=== PATIENT | female | born 1950 | race Caucasian/White ===

== ENCOUNTER 2016-07-09 19:51 | Outpatient (CLI) | payer OTHER | END 2016-07-09 19:52 | disposition critical access hospital (66) | DX: M25.571 Pain in right ankle and joints of right foot (principal); W01.0XXA Fall on same level from slipping, tripping and stumbling without subsequent striking against object, initial encounter; Y93.01 Activity, walking, marching and hiking | CPT/HCPCS: A0425; A0429 ==

== ENCOUNTER 2016-07-09 20:01 | Emergency (ER) | payer OTHER ==
[2016-07-09] MEDS ORDERED: HYDROcod/ACET 5/325 Prepack 6 PO ONE ×2 (21:06→21:10)
[2016-07-09] MEDS ORDERED: HYDROcod/ACETAM 5/325 MG TABLET PO STA (21:06)
[2016-07-09] MEDS ORDERED: KETOROLAC 60 MG/2 ML VIAL IM STA (21:06)
[2016-07-09] MEDS ORDERED: KETOROLAC 60 MG/2 ML VIAL ONE (21:10)
[2016-07-09] MEDS ORDERED: HYDROcod/ACETAM 5/325 MG TABLET ONE (21:10)
== END 2016-07-09 22:05 | disposition home or self-care (01) ==
DX: S82.851A Displaced trimalleolar fracture of right lower leg, initial encounter for closed fracture (principal); W01.0XXA Fall on same level from slipping, tripping and stumbling without subsequent striking against object, initial encounter; Y92.019 Unspecified place in single-family (private) house as the place of occurrence of the external cause; K21.9 Gastro-esophageal reflux disease without esophagitis
CPT/HCPCS: 29515; 73610; 96372; 99283; A9270

== ENCOUNTER 2016-07-17 12:24 | Observation (INO) | payer OTHER ==
[~2016-07-17 12:24] MED LIST: ceFAZolin 2 GM/50 ML 50 ML IV ONE
[2016-07-17] MEDS ORDERED: LACTATED RINGERS 1,000 ML IV ONE (12:48)
[2016-07-17] MEDS ORDERED: DEXAMETHASONE 4 MG/ML VIAL IVP ONE (13:45)
[2016-07-17] MEDS ORDERED: LIDOCAINE-MPF 2% 5 ML VIAL IM ONE (13:45)
[2016-07-17] MEDS ORDERED: EPINEPHrine 1 MG/ML AMP IVP ONE (13:45)
[2016-07-17] MEDS ORDERED: MIDAZOLAM 2 MG/2 ML VIAL IVP ONE (13:45)
[2016-07-17] MEDS ORDERED: PROPOFOL 200 MG/20 ML VIAL IVP ONE (13:45)
[2016-07-17] MEDS ORDERED: PHENYLEPHRINE 10 MG/ML VIAL IV ONE (13:45)
[2016-07-17] MEDS ORDERED: fentaNYL 100 MCG/2 ML VIAL IVP ONE (13:45)
[2016-07-17] MEDS ORDERED: ONDANSETRON 4 MG/2 ML VIAL IVP ONE (13:45)
[2016-07-17] MEDS ORDERED: ONDANSETRON 4 MG/2 ML VIAL IVP PRN (16:20)
[2016-07-17] MEDS ORDERED: ACETAMINOPHEN 325 MG TABLET PO PRN (16:20)
[2016-07-17] MEDS ORDERED: SODIUM CHLORIDE FLUSH 0.9% 10 ML SYRINGE IVP PRN (16:20)
[2016-07-17] MEDS ORDERED: PROCHLORPERAZINE 10 MG/2 ML VIAL IVP PRN (16:20)
[2016-07-17] MEDS ORDERED: ONDANSETRON ODT 4 MG TABLET TL PRN (16:20)
[2016-07-17] MEDS: HYDROcod/ACETAM 5/325 MG TABLET PO PRN ×2 (17:32→21:28)
[2016-07-17] MEDS: PANTOPRAZOLE 40 MG TABLET PO SCH (18:11)
[2016-07-18] MEDS: SODIUM CHLORIDE FLUSH 0.9% 10 ML SYRINGE IVP SCH ×2 (01:08→06:33)
[2016-07-18] MEDS: HYDROcod/ACETAM 5/325 MG TABLET PO PRN ×2 (02:41→07:00)
[2016-07-18] MEDS: PANTOPRAZOLE 40 MG TABLET PO SCH (06:31)
[2016-07-18] MEDS ORDERED: POLYETHYLENE GLYCOL 3350 17 GM PACKET PO SCH (09:00)
[2016-07-18] MEDS ORDERED: ENOXAPARIN 40 MG/0.4 ML SYRINGE SUBQ SCH (09:00)
== END 2016-07-18 09:54 | disposition home or self-care (01) ==
PROC: 0QSGXZZ Reposition Right Tibia, External Approach (ICD-10-PCS; 2016-07-17)
PROC: 0QSJXZZ Reposition Right Fibula, External Approach (ICD-10-PCS; principal; 2016-07-17 14:00)
DX: S82.851A Displaced trimalleolar fracture of right lower leg, initial encounter for closed fracture (principal); I46.9 Cardiac arrest, cause unspecified; K21.9 Gastro-esophageal reflux disease without esophagitis; Z73.3 Stress, not elsewhere classified; F41.9 Anxiety disorder, unspecified
CPT/HCPCS: 27818; 36415; 73610; 80053; 82550; 82553; 83735; 84100; 84484; 93005; 93306; 99217; 99218; A9270; J0690; J7120

== ENCOUNTER 2016-08-26 17:33 | Outpatient (CLI) | payer OTHER | END 2016-08-26 17:34 | disposition home or self-care (01) | DX: S82.841D Displaced bimalleolar fracture of right lower leg, subsequent encounter for closed fracture with routine healing (principal) ==

== ENCOUNTER 2017-01-08 15:12 | Outpatient (CLI) | payer OTHER ==
--- NOTE | 2017-01-09 15:36 | Mammography Report ---
DIGITAL SCREENING MAMMOGRAM: 01/08/2017 CLINICAL INDICATION: A 66-year-old nulliparous patient with history of benign cyst aspirations, for s creening. COMPARISON: 06/15/2012. TECHNIQUE: Routine CC and MLO projections were obtained of the breasts. Bilateral laterally exaggera sly craniocaudal views. FINDINGS: The breasts demonstrate heterogeneously dense fibroglandular parenchyma bilaterally. There is a shifting pattern of circumscribed nodules bilaterally, compatible with waxing and waning cysts. Coarse and punctate, typically benign calcifications are present. No suspicious masses, clustered mi crocalcifications, or regions of architectural distortion are identified. IMPRESSION: BENIGN FINDINGS. RECOMMENDATION: ROUTINE ANNUAL SCREENING UNLESS OTHERWISE CLINICALLY INDICATED. BIRADS CATEGORY 2-BENIGN FINDINGS. STANDARD QUALIFYING STATEMENTS 1. This examination was reviewed with the aid of Computer-Aided Detection (CAD). 2. A negative or benign imaging report should not delay biopsy if clinically suspicious findings are present. Consider surgical consultation if warranted. More than 5% of cancers are not identified by i maging. 3. Dense breasts may obscure an underlying neoplasm. JOB #: [id number] EXT JOB #:[id number]
== END 2017-01-08 15:13 | disposition home or self-care (01) ==
LOC: DI.N 15:12
PROVIDERS: ATTEND Family Medicine
DX: Z12.31 Encounter for screening mammogram for malignant neoplasm of breast (principal)
CPT/HCPCS: 77067

== ENCOUNTER → 2018-02-05 | Outpatient (CLI) | payer BC, OTHER ==
[2018-02-05 12:57] LABS: BASOPHILS % (AUTO) 0.6 %; EOSINOPHILS # (AUTO) 0.1 10^3/uL (0.0-0.7); EOSINOPHILS % (AUTO) 2.1 %; HGB - HEMOGLOBIN 13.5 g/dL (12.0-16.0); LYMPHOCYTES # (AUTO) 1.7 10^3/uL (1.5-3.5); LYMPHOCYTES % (AUTO) 33.6 %; MEAN CORPUSCULAR HEMOGLOBIN 29.9 pg (27.0-31.0); MEAN CORPUSCULAR VOLUME 87.8 fL (81.0-99.0); MEAN PLATELET VOLUME 7.1 fL (7.9-10.8); MONOCYTES # (AUTO) 0.5 10^3/uL (0.0-1.0); MONOCYTES % (AUTO) 10.1 %; NEUTROPHILS # (AUTO) 2.6 10^3/uL (1.5-6.6); NEUTROPHILS % (AUTO) 53.6 %; PLT - PLATELET COUNT 292 10^3/uL (130-450); RED BLOOD COUNT 4.53 10^6/uL (4.20-5.40); WHITE BLOOD COUNT 4.9 x10^3/uL (4.8-10.8)
[2018-02-05 13:14] LABS: ALBUMIN 3.8 g/dL (3.2-5.5); ALBUMIN/GLOBULIN RATIO 1.2 (1.0-2.2); ALKALINE PHOSPHATASE 57 IU/L (42-121); ALT ALANINE AMINOTRANSFERASE 18 IU/L (10-60); AST ASPARTATE AMINOTRANSFERASE 19 IU/L (10-42); BILIRUBIN,TOTAL 0.8 mg/dL (0.2-1.0); BUN - BLOOD UREA NITROGEN 15 mg/dL (6-20); CARBON DIOXIDE - CO2 25 mmol/L (21-32); CHLORIDE 101 mmol/L (101-111); CHOL/HDL RATIO 4.4 (<4.4); CHOLESTEROL 270 mg/dL; CREATININE 0.5 mg/dL (0.4-1.0); GFR - MDRD 124 (>89); GLUCOSE 109 mg/dL (70-100); HDL CHOLESTEROL 61 mg/dL; LDL CHOLESTEROL,CALCULATED 187 mg/dL; LDL/HDL RATIO 3.1 (<4.4); SODIUM 135 mmol/L (135-145); TOTAL PROTEIN 6.9 g/dL (6.7-8.2); VLDL CHOLESTEROL 22 mg/dL
== END ==
LOC: LAB.WCP 07:40
PROVIDERS: ATTEND Family Medicine
DX: Z00.00 Encounter for general adult medical examination without abnormal findings (principal)
CPT/HCPCS: 36415; 80053; 80061; 83721; 84443; 85025

== ENCOUNTER 2018-09-07 11:50 | Outpatient (CLI) | payer BC | END 2018-09-07 11:51 | disposition home or self-care (01) | LOC: LAB.R 11:50 | PROVIDERS: ATTEND Family Medicine | DX: N39.0 Urinary tract infection, site not specified (principal) | CPT/HCPCS: 87077; 87086; 87181 ==

== ENCOUNTER 2018-09-13 21:46 | Emergency (ER) | payer BC ==
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
[2018-09-13] MEDS ORDERED: HYDROcod/ACETAM 5/325 MG TABLET PO STA (22:31)
[2018-09-13] MEDS ORDERED: MUPIROCIN 2% OINT 1 GM TOP STA (23:04)
[2018-09-13 23:27] VITALS: BP 160/84
== END 2018-09-13 23:24 | disposition home or self-care (01) ==
LOC: ED 21:46
DX: T23.132A Burn of first degree of multiple left fingers (nail), not including thumb, initial encounter (principal); X13.1XXA Other contact with steam and other hot vapors, initial encounter; Y93.G1 Activity, food preparation and clean up
CPT/HCPCS: 99282; A9270

== ENCOUNTER 2019-02-21 05:00 | Outpatient (CLI) | payer BC | END 2019-02-21 23:59 | disposition home or self-care (01) | LOC: LAB.R 05:00 | PROVIDERS: ATTEND Physician Assistant Medical | DX: N39.0 Urinary tract infection, site not specified (principal) | CPT/HCPCS: 87086; 87181 ==

== ENCOUNTER 2019-03-25 14:08 | Emergency (ER) | payer BC ==
[2019-03-25] MEDS ORDERED: SODIUM CHLORIDE 0.9% 1,000 ML IV ONE (14:32)
[2019-03-25] MEDS ORDERED: ONDANSETRON 4 MG/2 ML VIAL IVP STA (14:32)
--- NOTE | 2019-03-25 14:34 | ED Physician Documentation ---
PD HPI ABD PAIN - Stated complaint Stated Complaint: VOMITING - Chief complaint Chief Complaint: Abd Pain - History obtained from History obtained from: Patient - History of Present Illness Timing - onset: Other (She was nauseous through the night last night and then started vomiting this morning. She had diffuse abdominal pain which is now gone. A mild headache. She denies fevers or chills. No diarrhea. She was exposed to a viral GI illness at work recently. No recent travel.) Review of Systems Ten Systems: 10 systems reviewed and negative Constitutional: denies: Fever, Chills Nose: denies: Rhinorrhea / runny nose, Congestion Throat: denies: Sore throat Cardiac: denies: Chest pain / pressure, Palpitations Respiratory: denies: Cough GI: reports: Abdominal Pain, Nausea, Vomiting. 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 HEENT: Tonsil/Adenoidectomy - Present Medications Home Medications: Ambulatory Orders Medication Instructions Recorded Confirmed Hydrocodone/Acetaminophen [[place] 1 tab PO Q6H PRN 07/16/16 07/17/16 5-325 Tablet] Omeprazole [PriLOSEC] 20 mg PO QDAC 07/16/16 07/17/16 ALPRAZolam [Xanax] 0.25 mg PO QPM PRN 07/17/16 07/17/16 Nitrofurantoin [Macrobid] 100 mg 09/13/18 Ondansetron Odt [Zofran] 4 mg TL Q6H PRN #10 tablet 03/25/19 - Allergies Allergies/Adverse Reactions: Allergies Allergy/AdvReac Type Severity Reaction Status Date / Time cucumber Allergy Intermediate FACE SWELLS Verified 03/25/19 14:19 dill oil Allergy Intermediate FACE SWELLS Verified 03/25/19 14:19 diphenhydramine HCl * Allergy Intermediate Edema Verified 03/25/19 14:19 [From Benadryl] Sulfa (Sulfonamide Allergy Intermediate Rash Verified 03/25/19 14:19 Antibiotics) fentanyl Allergy Anaphylaxis Verified 03/25/19 14:19 midazolam [From Versed] Allergy Anaphylaxis Verified 03/25/19 14:19 propofol Allergy Anaphylaxis Verified 03/25/19 14:19 erythromycin base AdvReac Severe Nausea Verified 03/25/19 14:19 [From E-Mycin] bacitracin AdvReac Rash Verified 03/25/19 14:19 [From Neosporin ([id number])] - Social History Does the pt smoke?: No Smoking Status: Never smoker Does the pt drink ETOH?: No Does the pt have substance abuse?: No - Immunizations Immunizations are current?: Yes - POLST Patient has POLST: No PD ED PE NORMAL - Vitals Vital signs reviewed: Yes (Tachycardic) - General General: Alert and oriented X 3, No acute distress - HEENT HEENT: PERRL, EOMI - Neck Neck: Supple, no meningeal sign, No bony TTP - Cardiac Cardiac: Other (Tachycardic, regular, no murmur) - Respiratory Respiratory: No respiratory distress, Clear bilaterally - Abdomen Abdomen: Soft, Non tender - Back Back: No CVA TTP, No spinal TTP - Derm Derm: Normal color, Warm and dry - Extremities Extremities: No edema, No calf tenderness / cord - Neuro Neuro: Alert and oriented X 3, Normal speech Results - Vitals Vitals: Vital Signs - 24 hr 03/25/19 03/25/19 14:19 16:13 Temperature 37.8 C H 36.5 C Heart Rate 123 H 90 Respiratory 17 14 Rate Blood Pressure 119/87 H 122/86 H O2 Saturation 97 98 Oxygen O2 Source Room air - EKG (time done) 1435 Rate: Rate (enter#) (115) Rhythm: Sinus tachycardia [place]: Normal Intervals: Normal SC QRS: Normal Ischemia: Non specific changes Computer interpretation: Agree with computer - Labs Labs: Laboratory Tests 03/25/19 03/25/19 03/25/19 14:46 14:46 14:46 WBC 8.0 RBC 4.81 Hgb 14.2 Hct 42.9 MCV 89.2 MCH 29.5 MCHC 33.1 RDW 13.8 Plt Count 279 MPV 8.3 Neut # (Auto) 7.3 H Lymph # (Auto) 0.3 L [place] # (Auto) 0.3 Eos # (Auto) 0.0 Baso # (Auto) 0.0 Absolute Nucleated RBC 0.00 Nucleated RBC % 0.0 Sodium 136 Potassium 3.5 Chloride 102 Carbon Dioxide 24 Anion Gap 10.0 BUN 18 Creatinine 0.6 Estimated GFR (MDRD) 100 Glucose 129 H Lactic Acid Calcium 8.8 Total Bilirubin 0.7 AST 21 ALT 20 Alkaline Phosphatase 62 Troponin I High Sens < 2.3 L Total Protein 7.8 Albumin 4.0 Globulin 3.8 Albumin/Globulin Ratio 1.1 Lipase 29 Urine Color Urine Clarity Urine pH Ur Specific [place] Urine Protein Urine Glucose (UA) Urine Ketones Urine Occult Blood Urine Nitrite Urine Bilirubin Urine Urobilinogen Ur Leukocyte Esterase Ur Microscopic Review Urine Culture Comments 03/25/19 03/25/19 14:46 15:49 WBC RBC Hgb Hct MCV MCH MCHC RDW Plt Count MPV Neut # (Auto) Lymph # (Auto) [place] # (Auto) Eos # (Auto) Baso # (Auto) Absolute Nucleated RBC Nucleated RBC % Sodium Potassium Chloride Carbon Dioxide Anion Gap BUN Creatinine Estimated GFR (MDRD) Glucose Lactic Acid 1.3 Calcium Total Bilirubin AST ALT Alkaline Phosphatase Troponin I High Sens Total Protein Albumin Globulin Albumin/Globulin Ratio Lipase Urine Color YELLOW Urine Clarity CLEAR Urine pH 7.0 Ur Specific [place] <=1.005 Urine Protein NEGATIVE Urine Glucose (UA) NEGATIVE Urine Ketones 15 H Urine Occult Blood NEGATIVE Urine Nitrite NEGATIVE Urine Bilirubin NEGATIVE Urine Urobilinogen 0.2 (NORMAL) Ur Leukocyte Esterase NEGATIVE Ur Microscopic Review NOT INDICATED Urine Culture Comments NOT INDICATED PD MEDICAL DECISION MAKING - ED course ED course: 68-year-old woman presents with vomiting that started this morning. She is not tender. She was feeling much better after some Zofran and IV fluids. Her labs are reassuring. On recheck at 3:50 PM she was pain-free, nontender, and had passed a p.o. challenge. Departure - Departure Disposition: 01 Home, Self Care Clinical Impression: Vomiting Qualifiers: Vomiting type: unspecified Vomiting Intractability: non-intractable Nausea presence: with nausea Qualified Code(s): R11.2 - Nausea with vomiting, unspecified Condition: Good Record reviewed to determine appropriate education?: Yes Instructions: ED Nausea Vomiting Prescriptions: Ondansetron Odt [Zofran] 4 mg TL Q6H PRN #10 tablet PRN Reason: Nausea / Vomiting Comments: Return in 12 hours if not better, anytime if worsening. Or for severe pain.
[2019-03-25 14:52] LABS: BASOPHILS % (AUTO) 0.1 %; EOSINOPHILS % (AUTO) 0.3 %; HGB - HEMOGLOBIN 14.2 g/dL (12.0-16.0); LYMPHOCYTES # (AUTO) 0.3 10^3/uL (1.5-3.5); LYMPHOCYTES % (AUTO) 3.8 %; MEAN CORPUSCULAR HEMOGLOBIN 29.5 pg (27.0-31.0); MEAN CORPUSCULAR HGB CONC 33.1 g/dL (32.0-36.0); MEAN CORPUSCULAR VOLUME 89.2 fL (81.0-99.0); MEAN PLATELET VOLUME 8.3 fL (7.9-10.8); MONOCYTES # (AUTO) 0.3 10^3/uL (0.0-1.0); MONOCYTES % (AUTO) 3.5 %; NEUTROPHILS # (AUTO) 7.3 10^3/uL (1.5-6.6); PLT - PLATELET COUNT 279 10^3/uL (130-450); RED BLOOD COUNT 4.81 10^6/uL (4.20-5.40); RED CELL DISTRIBUTION WIDTH 13.8 % (12.0-15.0)
[2019-03-25 15:07] LABS: ALBUMIN/GLOBULIN RATIO 1.1 (1.0-2.2); BILIRUBIN,TOTAL 0.7 mg/dL (0.2-1.0); CALCIUM 8.8 mg/dL (8.5-10.3); CREATININE 0.6 mg/dL (0.4-1.0); TOTAL PROTEIN 7.8 g/dL (6.7-8.2)
[2019-03-25 15:58] LABS: BILIRUBIN,URINE NEGATIVE (NEGATIVE); GLUCOSE, URINE (UA) NEGATIVE (NEGATIVE); KETONES,URINE (UA) 15 mg/dL (NEGATIVE); LEUKOCYTE ESTERASE, URINE NEGATIVE (NEGATIVE); NITRITE,URINE NEGATIVE (NEGATIVE); OCCULT BLOOD,URINE NEGATIVE (NEGATIVE); PROTEIN,URINE NEGATIVE (NEGATIVE); UROBILINOGEN,URINE 0.2 (NORMAL) E.U./dL (NORMAL)
[2019-03-25 16:00] LABS: CLARITY,URINE CLEAR (CLEAR)
[2019-03-25 16:14] VITALS: BP 122/86
== END 2019-03-25 16:29 | disposition home or self-care (01) ==
LOC: ED 14:08
DX: R11.2 Nausea with vomiting, unspecified (principal)
CPT/HCPCS: 36415; 80053; 81001; 81003; 83605; 83690; 84484; 85025; 87086; 93005; 96361; 96374; 99284

== ENCOUNTER 2020-01-25 09:31 | Outpatient (CLI) | payer BC | END 2020-01-25 23:59 | disposition home or self-care (01) | LOC: LAB.R 09:31 | PROVIDERS: ATTEND Family Medicine | DX: N39.0 Urinary tract infection, site not specified (principal) | CPT/HCPCS: 87086 ==

== ENCOUNTER 2020-05-21 07:00 | Outpatient (CLI) | payer BC | END 2020-05-21 23:59 | disposition home or self-care (01) | LOC: LAB.R 07:00 | PROVIDERS: ATTEND Nurse Practitioner | DX: N39.0 Urinary tract infection, site not specified (principal) | CPT/HCPCS: 87086 ==

== ENCOUNTER 2021-07-22 15:30 | Outpatient (CLI) | payer OTHER ==
--- NOTE | 2021-07-23 10:25 | Mammography Report ---
BILATERAL DIGITAL SCREENING MAMMOGRAM 3D/2D: 07/22/2021 CLINICAL: Routine screening. Comparison is made to exams dated: 01/08/2017 mammogram and 06/15/2012 mammogram - [facility]. The tissue of both breasts is extremely dense, which lowers the sensitivity of mammography . There are benign masses in both breasts. No significant masses, calcifications, or other findings are seen in either breast. There has been no significant interval change. IMPRESSION: BENIGN There is no mammographic evidence of malignancy. A 1 year screening mammogram is recommended. This exam was interpreted at Station ID: [id number]. NOTE: For mammograms, a report in lay terms will be sent to the patient. Approximately 15% of breast malignancies will not be visualized mammographically. In the management of a palpable breast mass, a negative mammogram must not discourage biopsy of a clinically suspicious lesion. Electronically Signed By: Panda Wilder M.D. slc/penrad:07/23/2021 08:33:31 ACR BI-RADS Category 2: Benign Finding(s) 3342F PARENCHYMAL PATTERN: (VD) - The breast(s) demonstrate(s) extremely dense parenchyma, limiting the sen sitivity of mammography. BI-RADS CATEGORY: (2) - 2 RECOMMENDATION: (ANNUAL) - Recommend routine annual screening mammography. [id number] 1 year screening LATERALITY: (B)
== END 2021-07-22 15:31 | disposition home or self-care (01) ==
LOC: DI.N 15:30
DX: Z12.31 Encounter for screening mammogram for malignant neoplasm of breast (principal)

== ENCOUNTER 2021-08-27 09:50 | Outpatient (CLI) | payer OTHER | END 2021-08-27 23:59 | disposition home or self-care (01) | LOC: LAB.WCP 09:50 | PROVIDERS: ATTEND Physician Assistant | DX: R10.9 Unspecified abdominal pain (principal) | CPT/HCPCS: 87086 ==

== ENCOUNTER 2022-02-10 09:06 | Outpatient (CLI) | payer MEDICARE ==
[2022-02-10 09:32] LABS: BASOPHILS % (AUTO) 0.6 %; EOSINOPHILS # (AUTO) 0.1 10^3/uL (0.0-0.7); EOSINOPHILS % (AUTO) 1.7 %; HCT - HEMATOCRIT 40.9 % (37.0-47.0); HGB - HEMOGLOBIN 13.4 g/dL (12.0-16.0); LYMPHOCYTES # (AUTO) 1.6 10^3/uL (1.5-3.5); LYMPHOCYTES % (AUTO) 33.5 %; MEAN CORPUSCULAR HEMOGLOBIN 29.4 pg (27.0-31.0); MEAN CORPUSCULAR HGB CONC 32.8 g/dL (32.0-36.0); MEAN CORPUSCULAR VOLUME 89.7 fL (81.0-99.0); MEAN PLATELET VOLUME 8.2 fL (7.9-10.8); MONOCYTES # (AUTO) 0.5 10^3/uL (0.0-1.0); NEUTROPHILS # (AUTO) 2.5 10^3/uL (1.5-6.6); NEUTROPHILS % (AUTO) 53.2 %; PLT - PLATELET COUNT 274 10^3/uL (130-450); RED BLOOD COUNT 4.56 10^6/uL (4.20-5.40); RED CELL DISTRIBUTION WIDTH 13.5 % (12.0-15.0); WHITE BLOOD COUNT 4.7 x10^3/uL (4.8-10.8)
[2022-02-10 09:54] LABS: % IRON SATURATION 24 % (20-50); ALBUMIN/GLOBULIN RATIO 1.3 (1.0-2.2); ALKALINE PHOSPHATASE 54 IU/L (42-121); ALT ALANINE AMINOTRANSFERASE 18 IU/L (10-60); AMYLASE 90 U/L (28-100); AST ASPARTATE AMINOTRANSFERASE 18 IU/L (10-42); BILIRUBIN,TOTAL 0.7 mg/dL (0.2-1.0); BUN - BLOOD UREA NITROGEN 14 mg/dL (6-20); CALCIUM 9.3 mg/dL (8.5-10.3); CARBON DIOXIDE - CO2 26 mmol/L (21-32); CHLORIDE 101 mmol/L (101-111); CHOL/HDL RATIO 5.3 (<4.4); CHOLESTEROL 303 mg/dL; CREATININE 0.7 mg/dL (0.4-1.0); GFR - MDRD 83 (>89); GLUCOSE 117 mg/dL (70-100); HDL CHOLESTEROL 57 mg/dL; IRON 80 ug/dL (28-170); LDL CHOLESTEROL,CALCULATED 221 mg/dL; LDL/HDL RATIO 3.9 (<4.4); LIPASE 35 U/L (22-51); SODIUM 135 mmol/L (135-145); TOTAL IRON BINDING CAPACITY 335 ug/dL (250-450); TOTAL PROTEIN 7.1 g/dL (6.7-8.2); TRANSFERRIN 239 mg/dL (192-382); TRIGLYCERIDES 124 mg/dL; VLDL CHOLESTEROL 25 mg/dL
[2022-02-10 10:01] LABS: CA 125 10.5 U/mL (0.0-35.0)
[2022-02-10 10:04] LABS: THYROID STIMULATING HORMONE 1.2 uIU/mL (0.34-5.60)
[2022-02-10 10:10] LABS: FERRITIN 110.5 ng/mL (11.0-306.8)
== END 2022-02-10 09:07 | disposition home or self-care (01) ==
LOC: LAB 09:06
PROVIDERS: ATTEND Physician Assistant
DX: E78.5 Hyperlipidemia, unspecified (principal); R10.30 Lower abdominal pain, unspecified; R14.0 Abdominal distension (gaseous); D64.9 Anemia, unspecified; Z13.29 Encounter for screening for other suspected endocrine disorder
CPT/HCPCS: 36415; 80053; 80061; 82150; 82728; 83540; 83690; 83721; 84443; 84466; 85025; 86304

== ENCOUNTER 2022-02-20 15:55 | Outpatient (CLI) | payer MEDICARE ==
--- NOTE | 2022-02-21 13:19 | Ultrasound Report ---
PROCEDURE: Pelvic w/Transvaginal INDICATIONS: LOWER ABD PAIN, POST MENOPAUSAL TECHNIQUE: Real-time scanning was performed of the pelvic organs, with image documentation. Additional endovagi nal scanning was necessary due to incomplete visualization of the adnexal and endometrial structures by transabdominal scanning. COMPARISON: None. FINDINGS: Uterus: Uterus is surgically absent. No abnormality is seen in the vaginal cuff region. Ovaries: The right ovary measures 2.5 x 1.1 x 1.2 cm, with a calculated ovarian volume of 1.7 cc. T he left ovary measures 3.8 x 3.5 x 3.5 cm, with a calculated ovarian volume of 24.7 cc. The ovaries have a normal sonographic appearance. 2 simple appearing cysts are seen in left ovary measures 3 x 2. 9 x 2.8 cm and 1.9 x 1.6 x 1.7 cm in size. Ill-defined soft tissue versus solid mass is seen in left adnexa and measures in aggregate 2.5 x 1.8 x 1.2 cm in size. Other: No pathologic free abdominal or pelvic fluid. IMPRESSION: 1. Uterus is surgically absent. No gross abnormalities seen in the vaginal cuff region. 2. Simple cysts are noted in left ovary as above. Possible solid mass versus normal ovarian tissue in left ovary measures up to 2.5 x 1.8 x 2 cm in size. Follow-up study in 4-6 weeks is recommended. Nor mal-appearing right ovary. Reviewed by: Taras Pagan MD on 02/21/2022 1:18 PM PST Approved by: Taras Pagan MD on 02/21/2022 1:18 PM PST Station ID: [id number]
== END 2022-02-20 15:56 | disposition home or self-care (01) ==
LOC: DI 15:55
PROVIDERS: ATTEND Physician Assistant
DX: N83.292 Other ovarian cyst, left side (principal); Z90.710 Acquired absence of both cervix and uterus

== ENCOUNTER 2022-04-02 08:14 | Outpatient (CLI) | payer MEDICARE ==
--- NOTE | 2022-04-02 10:20 | Ultrasound Report ---
PROCEDURE: Pelvic w/Transvaginal INDICATIONS: MASS OF L OVARY TECHNIQUE: Real-time scanning was performed of the pelvic organs, with image documentation. Additional endovagi nal scanning was necessary due to incomplete visualization of the adnexal and endometrial structures by transabdominal scanning. COMPARISON: Ultrasound dated 02/20/2022 FINDINGS: Uterus: Surgically absent Ovaries: The right ovary measures 3.5 x 2.1 x 1.7 cm, with a calculated ovarian volume of 6.6 cc. T he left ovary measures 4.4 x 3.1 cm. Left ovarian cyst measuring 3.6 x 3.1 x 3.6 cm is present (previ ously measuring 3.0 x 2.9 x 2.8 cm). Left ovarian cyst measuring 1.9 x 1.4 x 1.4 cm is present (previ ously measuring 1.9 x 1.6 x 0.7 cm). The ovaries have an otherwise normal sonographic appearance. Le ss than 12 follicles can be seen in each ovary. No adnexal masses are seen. Other: No pathologic free abdominal or pelvic fluid. IMPRESSION: 1. Slight increase in left ovarian cysts. Continued follow-up is recommended to exclude underlying ne oplasm. Reviewed by: Delmi Crooks MD on 04/02/2022 10:19 AM PST Approved by: Delmi Crooks MD on 04/02/2022 10:19 AM PST Station ID: [id number]
== END 2022-04-02 08:15 | disposition home or self-care (01) ==
LOC: DI 08:14
PROVIDERS: ATTEND Physician Assistant
DX: N83.202 Unspecified ovarian cyst, left side (principal)

== ENCOUNTER 2022-04-15 09:56 | Outpatient (CLI) | payer MEDICARE ==
--- NOTE | 2022-04-15 17:03 | DEXA Report ---
PROCEDURE: Dexa Spine and/or Hip INDICATIONS: LOWER ABD PAIN, POST MENOPAUSAL TECHNIQUE: Dual energy x-ray absorptiometry (DXA) was performed on a [employer] System. Regions measur ed are the AP Spine, femoral neck, and if needed forearm. COMPARISON: None. FINDINGS: Lumbar Spine: Bone Mineral Density 0.982 g/cm/cm,T score -1.6, osteopenia Left Femoral Neck: Bone Mineral Density 0.689 g/cm/cm, T score -2.5, osteoporosis Left Hip: Bone Mineral Density 0.834 g/cm/cm,T score -1.4, osteopenia (T score greater or equal to -1.0: NORMAL) (T score from -1.1 to -2.4: OSTEOPENIA) (T score less than or equal to -2.5 to: OSTEOPOROSIS) Impression: Osteoporosis. Patient is at high risk for fracture. Patients with diagnosis of osteoporosis or osteopenia should have regular bone mineral density assess ment. For those eligible for Medicare, routine testing is allowed once every 2 years. Testing frequ ency can be increased for patients who have rapidly progressing disease or for those who are receivin g medical therapy to restore bone mass. Reviewed by: Shun Navarro MD on 04/15/2022 5:02 PM PST Approved by: Shun Navarro MD on 04/15/2022 5:02 PM PST Station ID: [id number]
== END 2022-04-15 09:57 | disposition home or self-care (01) ==
LOC: DI 09:56
PROVIDERS: ATTEND Physician Assistant
DX: Z78.0 Asymptomatic menopausal state (principal); M81.0 Age-related osteoporosis without current pathological fracture

== ENCOUNTER 2022-08-07 15:46 | Outpatient (CLI) | payer MEDICARE, BC ==
--- NOTE | 2022-08-07 17:35 | Ultrasound Report ---
PROCEDURE: Pelvic w/Transvaginal INDICATIONS: LEFT OVARIAN MASS, POST MENOPAUSAL TECHNIQUE: Real-time scanning was performed of the pelvic organs, with image documentation. Additional endovagi nal scanning was necessary due to incomplete visualization of the adnexal and endometrial structures by transabdominal scanning. COMPARISON: 04/02/2022 FINDINGS: Uterus: Hysterectomy Right ovary not visualized. In left adnexa, there is a adnexal cyst measuring 4.1 x 3.2 x 2.6 cm with peripheral vascularity, pro bably reflecting left ovarian cyst. Otherwise, no free fluid or adnexal mass. IMPRESSION: Nonvisualization right ovary Left adnexal cyst measures 4.1 x 3.2 cm. Consider continued surveillance versus MRI evaluation. Nonvisualized right ovary Reviewed by: Geoff Nj MD on 08/07/2022 4:33 PM AKDT Approved by: Geoff Nj MD on 08/07/2022 4:33 PM AKDT Station ID: [id number]
== END 2022-08-07 15:47 | disposition home or self-care (01) ==
LOC: DI 15:46
PROVIDERS: ATTEND Physician Assistant
DX: R19.00 Intra-abdominal and pelvic swelling, mass and lump, unspecified site (principal); Z78.0 Asymptomatic menopausal state
CPT/HCPCS: 36415; 86304

== ENCOUNTER 2022-12-11 08:00 | Outpatient (CLI) | payer MEDICARE, BC | END 2022-12-11 23:59 | disposition home or self-care (01) | LOC: LAB.N 08:00 | PROVIDERS: ATTEND Registered Nurse | DX: U07.1 COVID-19 (principal) ==

== ENCOUNTER 2023-02-02 11:03 | Outpatient (CLI) | payer MEDICARE, BC ==
--- NOTE | 2023-02-02 16:01 | Ultrasound Report ---
PROCEDURE: Pelvic w/Transvaginal INDICATIONS: MASS OF OVARY TECHNIQUE: Real-time scanning was performed of the pelvic organs, with image documentation. Additional endovagi nal scanning was necessary due to incomplete visualization of the adnexal and endometrial structures by transabdominal scanning. COMPARISON: 08/07/2022. FINDINGS: Uterus: Surgically absent Ovaries: Right ovary has a normal postmenopausal appearance, measuring 1.2 x 1.1 x 1.0 cm with a ovar javier volume of 0.7 mL. Left ovary measures 3.6 x 3.9 x 3.4 cm, with a total volume calculated at 24.8 mL. No significant change in left ovarian/adnexal cyst. The cyst now measures 2.4 x 3.4 x 2.4 cm. It previously measured 3.8 x 3.0 x 3.0 cm. Other: No pathologic free abdominal or pelvic fluid. IMPRESSION: Stable or diminished left ovarian cyst. Dimension is currently 3.4 cm. Comment: Recommend routine follow-up ultrasound in 12 months. Reviewed by: Mau Jiang MD on 02/02/2023 3:59 PM PDT Approved by: Mau Jiang MD on 02/02/2023 3:59 PM PDT Station ID: [id number]
== END 2023-02-02 11:04 | disposition home or self-care (01) ==
LOC: DI 11:03
PROVIDERS: ATTEND Physician Assistant
DX: N83.202 Unspecified ovarian cyst, left side (principal)

== ENCOUNTER 2023-02-05 13:06 | Outpatient (CLI) | payer MEDICARE, BC ==
--- NOTE | 2023-02-06 10:28 | Mammography Report ---
BILATERAL DIGITAL SCREENING MAMMOGRAM 3D/2D: 02/05/2023 CLINICAL: Routine screening. Comparison is made to exams dated: 07/22/2021 mammogram and 01/08/2017 mammogram - [facility]. Both breasts are extremely dense, which lowers the sensitivity of mammography (category d />75% gland ular tissue). There are benign masses in both breasts. There also are benign calcifications in both breasts. No significant masses, calcifications, or other findings are seen in either breast. There has been no significant interval change. IMPRESSION: BENIGN There is no mammographic evidence of malignancy. A 1 year screening mammogram is recommended. Based on the Tyrer Cuzick model (a risk assessment model) the patients lifetime risk is 12.5% and he r 10 year risk is 8.0%. According to the ACR, ACS, and NCCN guidelines, an annual breast MRI exam swati ng with mammogram is recommended if the patients lifetime risk is 20% or greater. This exam was interpreted at Station ID: [id number]. NOTE: For mammograms, a report in lay terms will be sent to the patient. Approximately 15% of breast malignancies will not be visualized mammographically. In the management of a palpable breast mass, a negative mammogram must not discourage biopsy of a clinically suspicious lesion. Electronically Signed By: Panda [email or web address]/[email or web address]:02/05/2023 17:59:08 letter sent: No_Letter ACR BI-RADS Category 2: Benign Finding(s) 3342F PARENCHYMAL PATTERN: (VD) - The breast(s) demonstrate(s) extremely dense parenchyma, limiting the sen sitivity of mammography. BI-RADS CATEGORY: (2) - 2 Mammogram [id number] 1 year screening LATERALITY: (B)
== END 2023-02-05 13:07 | disposition home or self-care (01) ==
LOC: DI 13:06
DX: Z12.31 Encounter for screening mammogram for malignant neoplasm of breast (principal); R92.343 Mammographic extreme density, bilateral breasts

== ENCOUNTER 2023-04-03 08:59 | Outpatient (CLI) | payer MEDICARE, BC ==
[2023-04-03 09:21] LABS: BASOPHILS % (AUTO) 0.9 %; EOSINOPHILS # (AUTO) 0.1 10^3/uL (0.0-0.7); EOSINOPHILS % (AUTO) 2.4 %; HCT - HEMATOCRIT 40.4 % (37.0-47.0); HGB - HEMOGLOBIN 13.3 g/dL (12.0-16.0); LYMPHOCYTES # (AUTO) 1.6 10^3/uL (1.5-3.5); LYMPHOCYTES % (AUTO) 34.4 %; MEAN CORPUSCULAR HEMOGLOBIN 28.5 pg (27.0-31.0); MEAN CORPUSCULAR HGB CONC 32.9 g/dL (32.0-36.0); MEAN CORPUSCULAR VOLUME 86.7 fL (81.0-99.0); MEAN PLATELET VOLUME 8.1 fL (7.9-10.8); MONOCYTES # (AUTO) 0.5 10^3/uL (0.0-1.0); MONOCYTES % (AUTO) 9.7 %; NEUTROPHILS # (AUTO) 2.4 10^3/uL (1.5-6.6); NEUTROPHILS % (AUTO) 52.4 %; PLT - PLATELET COUNT 303 10^3/uL (130-450); RED BLOOD COUNT 4.66 10^6/uL (4.20-5.40); RED CELL DISTRIBUTION WIDTH 14.1 % (12.0-15.0); WHITE BLOOD COUNT 4.7 x10^3/uL (4.8-10.8)
[2023-04-03 09:35] LABS: ALBUMIN 4.2 g/dL (3.2-5.5); ALBUMIN/GLOBULIN RATIO 1.6 (1.0-2.2); ALKALINE PHOSPHATASE 55 IU/L (42-121); ALT ALANINE AMINOTRANSFERASE 13 IU/L (10-60); AST ASPARTATE AMINOTRANSFERASE 13 IU/L (10-42); BILIRUBIN,TOTAL 0.4 mg/dL (0.2-1.0); BUN - BLOOD UREA NITROGEN 13 mg/dL (6-20); CALCIUM 9.3 mg/dL (8.5-10.3); CARBON DIOXIDE - CO2 23 mmol/L (21-32); CHLORIDE 103 mmol/L (101-111); CHOLESTEROL 257 mg/dL; CREATININE 0.6 mg/dL (0.6-1.3); GFR - MDRD 99 (>89); GLUCOSE 111 mg/dL (74-104); HDL CHOLESTEROL 51 mg/dL; LDL CHOLESTEROL,CALCULATED 174 mg/dL; LDL/HDL RATIO 3.4 (<4.4); POTASSIUM 4.1 mmol/L (3.5-4.5); SODIUM 136 mmol/L (135-145); TOTAL PROTEIN 6.9 g/dL (6.4-8.9); TRIGLYCERIDES 162 mg/dL (48-352); VLDL CHOLESTEROL 32 mg/dL
== END 2023-04-03 09:00 | disposition home or self-care (01) ==
LOC: LAB 08:59
PROVIDERS: ATTEND Physician Assistant
DX: M81.0 Age-related osteoporosis without current pathological fracture (principal); E78.5 Hyperlipidemia, unspecified; D64.9 Anemia, unspecified; R19.09 Other intra-abdominal and pelvic swelling, mass and lump
CPT/HCPCS: 36415; 80053; 80061; 83721; 85025; 86304

== ENCOUNTER 2023-08-10 11:05 | Outpatient (CLI) | payer MEDICARE, BC ==
--- NOTE | 2023-08-10 13:44 | Ultrasound Report ---
PROCEDURE: Pelvic w/Transvaginal INDICATIONS: MASS OF L OVARY TECHNIQUE: Real-time scanning was performed of the pelvic organs, with image documentation. Additional endovagi nal scanning was necessary due to incomplete visualization of the adnexal and endometrial structures by transabdominal scanning. COMPARISON: 02/02/2023 FINDINGS: Uterus: Surgically absent. Ovaries: The right ovary measures 1.7 x 1.0 x 2.0 cm, with a calculated ovarian volume of 1.8 cc. T he left ovary measures 5.9 x 4.1 x 4.6 cm, with a calculated ovarian volume of 15.2 cc. There are 2 left ovarian cysts, largest measuring 4.2 x 3.5 x 3.7 cm, previously 2.4 x 3.4 x 2.4 cm. The other me asures 2.4 x 1.2 x 2.0 cm. Other: No pathologic free abdominal or pelvic fluid. IMPRESSION: 1.Increased size of left ovarian cyst measuring 4.2 cm. Additional left ovarian cyst measuring 2.4 cm is present. Recommend 6-12 week follow-up ultrasound. 2.Right ovary is normal in appearance. Status post hysterectomy. Reviewed by: Romeo Roldan MD on 08/10/2023 1:42 PM PDT Approved by: Romeo Roldan MD on 08/10/2023 1:42 PM PDT Station ID: [id number]
== END 2023-08-10 11:06 | disposition home or self-care (01) ==
LOC: DI 11:05
PROVIDERS: ATTEND Physician Assistant
DX: N83.202 Unspecified ovarian cyst, left side (principal); Z90.710 Acquired absence of both cervix and uterus